=== PATIENT | male | born 1955 | race Caucasian/White ===

== ENCOUNTER 2017-12-09 18:08 | Emergency (ER) | payer OTHER, SELFPAY ==
[2017-12-09 18:12] VITALS: BP 194/102; PULSE 72; RESP 16; TEMP 37.1; O2SAT 98
--- NOTE | 2017-12-09 18:27 | ED.UPPEXIN ---
HPI - Extremity Injury (Upper) <MARGARET Portillo - Last Filed: 12/09/17 22:20> General Chief Complaint: Extremity Injury, Upper Stated Complaint: RT HAND INJURY-SAW Time Seen by Provider: 12/09/17 18:27 Source: patient Mode of arrival: ambulatory Limitations: no limitations History of Present Illness HPI narrative: A 62-year-old with history of type 2 diabetes and is nonsmoker here for complaint of a laceration to his right palm area. He states that he was using a skill saw earlier today when he slipped while holding the saw causing the saw to cut the distal right palm area along the radial aspect to area of proximal index finger. He denies any other injuries. He states he has got good sensation to the finger. And has good movement. He does not know his last tetanus. No other concerns or complaints at this time. Related Data Previous Rx's Medication Instructions Recorded atorvastatin [Lipitor] 80 mg PO HS #90 tab 05/17/17 metformin [Glucophage] 0 PO BID #150 tab 07/06/17 cephalexin 500 mg PO BID #14 tab 12/09/17 hydrocodone-acetaminophen 1 tab PO Q4-6H PRN #10 tab 12/09/17 Allergies Allergy/AdvReac Type Severity Reaction Status Date / Time celery AdvReac Verified 12/09/17 18:11 soybean AdvReac Verified 12/09/17 18:11 Review of Systems <MARGARET Portillo - Last Filed: 12/09/17 22:20> Constitutional Denies chills, Denies fever(s), Denies lethargy and Denies weakness Eyes Denies change in vision, Denies eye discharge, Denies irritation and Denies loss of vision ENT Ears, Nose, Mouth, and Throat: Denies change in voice, Denies neck pain and Denies sore throat Cardiovascular Denies chest pain, Denies irregular heart rhythm, Denies lightheadedness, Denies palpitations, Denies dyspnea, Denies dyspnea on exertion and Denies orthopnea Respiratory Denies cough, Denies dyspnea, Denies dyspnea on exertion and Denies wheezing Genitourinary Denies hematuria, Denies flank pain, Denies urinary incontinence and Denies urinary urgency Musculoskeletal Denies neck pain Comments: Injury to right hand with saw Integumentary/Breasts Denies pruritus, Denies erythema, Denies rash and Denies wounds Neurologic Denies confusion, Denies loss of vision and Denies weakness Psychiatric Denies anxiety, Denies confusion, Denies depression, Denies homicidal ideation and Denies suicidal ideation Endocrine Denies palpitations Hematologic/Lymphatic Denies easy bruising Allergic/Immunologic Denies wheezing Exam <MARGARET Portillo - Last Filed: 12/09/17 22:20> Initial Vital Signs Initial Vital Signs: Vital Signs Temperature 98.7 F 12/09/17 18:12 Pulse Rate 72 12/09/17 18:12 Respiratory Rate 16 12/09/17 18:12 Blood Pressure 194/102 H 12/09/17 18:12 Pulse Oximetry 98 12/09/17 18:12 Const General: cooperative and well developed Nutritional Appearance: well nourished Orientation: alert, awake, oriented x3 and not confused HENMT Mouth: oral mucosae normal and moist mucous membranes Eyes Conjunctivae: conjunctivae normal Sclera: sclerae normal Pupils: PERRL EOM: EOM intact bilaterally Other: 5 cm jagged laceration to the palmar aspect of the right hand just proximal to the right index finger. Distal sensation is intact. Full range of motion distally. Distal cap refill less than 2 sec. Resp Effort & Inspection: normal respiratory effort, able to speak in complete sentences, no respiratory distress and no use of accessory muscles Auscultation: clear to auscultation bilaterally, no rales, no rhonchi and no wheezes Cardio Rate: regular rate Rhythm: regular rhythm Heart Sounds: no click, no gallops, no murmurs and no rubs Pulses: normal peripheral pulses Skin General: no rashes or lesions noted, No jaundice and No petechiae Neuro General: alert, oriented x3, gait normal and no focal motor deficits Speech: speech normal <Melissa Tian DO - Last Filed: 12/10/17 04:20> Initial Vital Signs Initial Vital Signs: Vital Signs Temperature 98.7 F 12/09/17 18:12 Pulse Rate 72 12/09/17 18:12 Respiratory Rate 16 12/09/17 18:12 Blood Pressure 194/102 H 12/09/17 18:12 Pulse Oximetry 98 12/09/17 18:12 Procedures <MARGARET Portillo - Last Filed: 12/09/17 22:20> Laceration Repair Laceration 1: Site: hand Side (If applicable): left Size (cm): 5 Description: irregular Depth: involves muscle layer Local Anesthetic: lidocaine 1% Amount of anesthesia used (mL): 6 Pre-repair: wound explored and irrigated extensively Skin layer closed with: nylon Size (cm): 4-0 Number of sutures: 12 Technique: simple, interrupted Course <MARGARET Portillo - Last Filed: 12/09/17 22:20> Orders Ordered: Discontinued Medications Cephalexin HCl (Keflex) 500 mg PO NOW ONE Stop: 12/09/17 21:13 Last Admin: 12/09/17 21:54 Dose: 500 mg Diphtheria/Tetanus/Acell Pertussis (Adacel) 0.5 ml IM .ONCE ONE Stop: 12/09/17 18:24 Last Admin: 12/09/17 18:29 Dose: 0.5 ml Vital Signs - 8 hr 12/09/17 21:40 Pulse Rate 66 Blood Pressure [Right Arm] 194/107 H Pulse Oximetry 94 <Melissa Tian DO - Last Filed: 12/10/17 04:20> Orders Ordered: Discontinued Medications Cephalexin HCl (Keflex) 500 mg PO NOW ONE Stop: 12/09/17 21:13 Last Admin: 12/09/17 21:54 Dose: 500 mg Diphtheria/Tetanus/Acell Pertussis (Adacel) 0.5 ml IM .ONCE ONE Stop: 12/09/17 18:24 Last Admin: 12/09/17 18:29 Dose: 0.5 ml Vital Signs - 8 hr 12/09/17 21:40 Pulse Rate 66 Blood Pressure [Right Arm] 194/107 H Pulse Oximetry 94 MDM - Extremity Injury (Upper) <MARGARET Portillo - Last Filed: 12/09/17 22:20> Imaging Data R hand: Radiologist's impression: [address] [address] XRay Report Signed Patient: Haroldo Lozano WMR#: [id number] : 3Acct:[id number] Age/Sex: 62 / MDate of Service: 12/09/17 Loc: ED Accession Number: [id number] Procedure: XR hand RT min 3V Ordering Provider: Jaspal Burnett PROCEDURE: XR HAND RT MIN 3V INDICATIONS: Laceration R index finger into palm sp saw injury TECHNIQUE: 3 views of the hand(s) acquired. COMPARISON: None. FINDINGS: Mildly displaced intra-articular fracture of proximal phalanx of the right index finger. There is mild articular surface incongruity at the PIP joint with approximately 1 mm of step-off and diastasis. Associated soft tissue swelling and laceration IMPRESSION: Intra-articular fracture involving the proximal phalanx of the right index finger Dictated by: Nathaniel Kraft M.D. on 12/09/2017 at 20:47 Approved by: Nathaniel Kraft M.D. on 12/09/2017 at 20:49 [facility] Narrative Medical decision making narrative: X-ray of the right hand shows a intra-articular fracture involving the proximal phalanx of the right index finger. Discussed case with Dr. Pugh Orthopedics who recommended closure and placed on antibiotics with close follow-up with Orthopedics. Patient call Orthopedics office tomorrow morning to schedule follow-up appointment tomorrow. He is placed on Keflex. Laceration to the right hand was closed with 12 4-0 nylon sutures. Area dressed with bacitracin dressing and hand splinted to limit the amount of show placed on the laceration. [id number] Tylenol or Motrin as needed for any discomfort. Small amount of [employer] is prescribed for breakthrough pain. For any worsening symptoms return to the emergency room. Discharge Plan Departure Patient Disposition: Home Clinical Impression: Open fracture of right hand Discharge Date/Time: 12/09/17 22:06 Interventions: ED Discharge Assessment Last Done: 12/09/17 22:06 Instructions: DI for Open Fracture Activity Restrictions/Additional Instructions: X-ray of the right hand shows a of a fracture to your right index finger. This is classified as an open fracture and is at risk for infection. Therefore you were placed on an antibiotic called Keflex use as directed. He will need to follow up with Orthopedics tomorrow call Orthopedics office at number provided to schedule follow-up appointment. Use [id number] Tylenol or Motrin as needed for any discomfort. Small amount of [employer] is prescribed for any breakthrough pain also use as directed no driving while on the [employer] [place]. Year placed in a splint to reduce the amount of pressure on the laceration where as directed for any worsening symptoms return to the emergency room. Prescriptions: New hydrocodone-acetaminophen 5-325 mg tablet 1 tab PO Q4-6H PRN (Reason: pain) Qty: 10 RF: 0 cephalexin 500 mg tablet 500 mg PO BID Qty: 14 RF: 0 No Action atorvastatin [Lipitor] 80 MG tablet 80 mg PO HS Qty: 90 RF: 1 metformin [Glucophage] 500 mg tablet PO BID Qty: 150 RF: 0 Referrals: Ba Dahl MD [Primary Care Provider] - Dino Pugh MD [Physician] - Stand Alone Forms: Work/School Restrictions <Melissa Tian DO - Last Filed: 12/10/17 04:20> Cosign ED Attending Carineature Attestation: I was immediately available in the department for consultation. Documentation has been reviewed. I agree with assessment and plan.
[2017-12-09] MEDS: TET,DIPH,PERTUSS(ACELL),VAC/PF 0.5 ML SYRINGE IM (18:29)
--- NOTE | 2017-12-09 19:12 | DI.RAD.S_ITS ---
PROCEDURE: XR HAND RT MIN 3V INDICATIONS: Laceration R index finger into palm sp saw injury TECHNIQUE: 3 views of the hand(s) acquired. COMPARISON: None. FINDINGS: Mildly displaced intra-articular fracture of proximal phalanx of the right index finger. There is mild articular surface incongruity at the PIP joint with approximately 1 mm of step-off and diastasis. Associated soft tissue swelling and laceration IMPRESSION: Intra-articular fracture involving the proximal phalanx of the right index finger Dictated by: Nathaniel Kraft M.D. on 12/09/2017 at 20:47 Approved by: Nathaniel Kraft M.D. on 12/09/2017 at 20:49
--- NOTE | 2017-12-09 21:18 | ED_ITS ---
HPI - Extremity Injury (Upper) <MARGARET Portillo - Last Filed: 12/09/17 22:20> General Chief Complaint: Extremity Injury, Upper Stated Complaint: RT HAND INJURY-SAW Time Seen by Provider: 12/09/17 18:27 Source: patient Mode of arrival: ambulatory Limitations: no limitations History of Present Illness HPI narrative: A 62-year-old with history of type 2 diabetes and is nonsmoker here for complaint of a laceration to his right palm area. He states that he was using a skill saw earlier today when he slipped while holding the saw causing the saw to cut the distal right palm area along the radial aspect to area of proximal index finger. He denies any other injuries. He states he has got good sensation to the finger. And has good movement. He does not know his last tetanus. No other concerns or complaints at this time. Related Data Previous Rx's Medication Instructions Recorded atorvastatin [Lipitor] 80 mg PO HS #90 tab 05/17/17 metformin [Glucophage] 0 PO BID #150 tab 07/06/17 cephalexin 500 mg PO BID #14 tab 12/09/17 hydrocodone-acetaminophen 1 tab PO Q4-6H PRN #10 tab 12/09/17 Allergies Allergy/AdvReac Type Severity Reaction Status Date / Time celery AdvReac Verified 12/09/17 18:11 soybean AdvReac Verified 12/09/17 18:11 Review of Systems <MARGARET Portillo - Last Filed: 12/09/17 22:20> Constitutional Denies chills, Denies fever(s), Denies lethargy and Denies weakness Eyes Denies change in vision, Denies eye discharge, Denies irritation and Denies loss of vision ENT Ears, Nose, Mouth, and Throat: Denies change in voice, Denies neck pain and Denies sore throat Cardiovascular Denies chest pain, Denies irregular heart rhythm, Denies lightheadedness, Denies palpitations, Denies dyspnea, Denies dyspnea on exertion and Denies orthopnea Respiratory Denies cough, Denies dyspnea, Denies dyspnea on exertion and Denies wheezing Genitourinary Denies hematuria, Denies flank pain, Denies urinary incontinence and Denies urinary urgency Musculoskeletal Denies neck pain Comments: Injury to right hand with saw Integumentary/Breasts Denies pruritus, Denies erythema, Denies rash and Denies wounds Neurologic Denies confusion, Denies loss of vision and Denies weakness Psychiatric Denies anxiety, Denies confusion, Denies depression, Denies homicidal ideation and Denies suicidal ideation Endocrine Denies palpitations Hematologic/Lymphatic Denies easy bruising Allergic/Immunologic Denies wheezing Exam <MARGARET Portillo - Last Filed: 12/09/17 22:20> Initial Vital Signs Initial Vital Signs: Vital Signs Temperature 98.7 F 12/09/17 18:12 Pulse Rate 72 12/09/17 18:12 Respiratory Rate 16 12/09/17 18:12 Blood Pressure 194/102 H 12/09/17 18:12 Pulse Oximetry 98 12/09/17 18:12 Const General: cooperative and well developed Nutritional Appearance: well nourished Orientation: alert, awake, oriented x3 and not confused HENMT Mouth: oral mucosae normal and moist mucous membranes Eyes Conjunctivae: conjunctivae normal Sclera: sclerae normal Pupils: PERRL EOM: EOM intact bilaterally Other: 5 cm jagged laceration to the palmar aspect of the right hand just proximal to the right index finger. Distal sensation is intact. Full range of motion distally. Distal cap refill less than 2 sec. Resp Effort & Inspection: normal respiratory effort, able to speak in complete sentences, no respiratory distress and no use of accessory muscles Auscultation: clear to auscultation bilaterally, no rales, no rhonchi and no wheezes Cardio Rate: regular rate Rhythm: regular rhythm Heart Sounds: no click, no gallops, no murmurs and no rubs Pulses: normal peripheral pulses Skin General: no rashes or lesions noted, No jaundice and No petechiae Neuro General: alert, oriented x3, gait normal and no focal motor deficits Speech: speech normal <Melissa Tian DO - Last Filed: 12/10/17 04:20> Initial Vital Signs Initial Vital Signs: Vital Signs Temperature 98.7 F 12/09/17 18:12 Pulse Rate 72 12/09/17 18:12 Respiratory Rate 16 12/09/17 18:12 Blood Pressure 194/102 H 12/09/17 18:12 Pulse Oximetry 98 12/09/17 18:12 Procedures <MARGARET Portillo - Last Filed: 12/09/17 22:20> Laceration Repair Laceration 1: Site: hand Side (If applicable): left Size (cm): 5 Description: irregular Depth: involves muscle layer Local Anesthetic: lidocaine 1% Amount of anesthesia used (mL): 6 Pre-repair: wound explored and irrigated extensively Skin layer closed with: nylon Size (cm): 4-0 Number of sutures: 12 Technique: simple, interrupted Course <MARGARET Portillo - Last Filed: 12/09/17 22:20> Orders Ordered: Discontinued Medications Cephalexin HCl (Keflex) 500 mg PO NOW ONE Stop: 12/09/17 21:13 Last Admin: 12/09/17 21:54 Dose: 500 mg Diphtheria/Tetanus/Acell Pertussis (Adacel) 0.5 ml IM .ONCE ONE Stop: 12/09/17 18:24 Last Admin: 12/09/17 18:29 Dose: 0.5 ml Vital Signs - 8 hr 12/09/17 21:40 Pulse Rate 66 Blood Pressure [Right Arm] 194/107 H Pulse Oximetry 94 <Melissa Tian DO - Last Filed: 12/10/17 04:20> Orders Ordered: Discontinued Medications Cephalexin HCl (Keflex) 500 mg PO NOW ONE Stop: 12/09/17 21:13 Last Admin: 12/09/17 21:54 Dose: 500 mg Diphtheria/Tetanus/Acell Pertussis (Adacel) 0.5 ml IM .ONCE ONE Stop: 12/09/17 18:24 Last Admin: 12/09/17 18:29 Dose: 0.5 ml Vital Signs - 8 hr 12/09/17 21:40 Pulse Rate 66 Blood Pressure [Right Arm] 194/107 H Pulse Oximetry 94 MDM - Extremity Injury (Upper) <MARGARET Portillo - Last Filed: 12/09/17 22:20> Imaging Data R hand: Radiologist's impression: [address] [address] XRay Report Signed Patient: Haroldo Lozano WMR#: [id number] : 3Acct:[id number] Age/Sex: 62 / MDate of Service: 12/09/17 Loc: ED Accession Number: [id number] Procedure: XR hand RT min 3V Ordering Provider: Jaspal Burnett PROCEDURE: XR HAND RT MIN 3V INDICATIONS: Laceration R index finger into palm sp saw injury TECHNIQUE: 3 views of the hand(s) acquired. COMPARISON: None. FINDINGS: Mildly displaced intra-articular fracture of proximal phalanx of the right index finger. There is mild articular surface incongruity at the PIP joint with approximately 1 mm of step-off and diastasis. Associated soft tissue swelling and laceration IMPRESSION: Intra-articular fracture involving the proximal phalanx of the right index finger Dictated by: Nathaniel Kraft M.D. on 12/09/2017 at 20:47 Approved by: Nathaniel Kraft M.D. on 12/09/2017 at 20:49 [facility] Narrative Medical decision making narrative: X-ray of the right hand shows a intra- articular fracture involving the proximal phalanx of the right index finger. Discussed case with Dr. Pugh Orthopedics who recommended closure and placed on antibiotics with close follow-up with Orthopedics. Patient call Orthopedics office tomorrow morning to schedule follow-up appointment tomorrow. He is placed on Keflex. Laceration to the right hand was closed with 12 4-0 nylon sutures. Area dressed with bacitracin dressing and hand splinted to limit the amount of show placed on the laceration. [id number] Tylenol or Motrin as needed for any discomfort. Small amount of [place] is prescribed for breakthrough pain. For any worsening symptoms return to the emergency room. Discharge Plan Departure Patient Disposition: Home Clinical Impression: Open fracture of right hand Discharge Date/Time: 12/09/17 22:06 Interventions: ED Discharge Assessment Last Done: 12/09/17 22:06 Instructions: DI for Open Fracture Activity Restrictions/Additional Instructions: X-ray of the right hand shows a of a fracture to your right index finger. This is classified as an open fracture and is at risk for infection. Therefore you were placed on an antibiotic called Keflex use as directed. He will need to follow up with Orthopedics tomorrow call Orthopedics office at number provided to schedule follow-up appointment. Use [id number] Tylenol or Motrin as needed for any discomfort. Small amount of [place] is prescribed for any breakthrough pain also use as directed no driving while on the [place]. Year placed in a splint to reduce the amount of pressure on the laceration where as directed for any worsening symptoms return to the emergency room. Prescriptions: New hydrocodone-acetaminophen 5-325 mg tablet 1 tab PO Q4-6H PRN (Reason: pain) Qty: 10 RF: 0 cephalexin 500 mg tablet 500 mg PO BID Qty: 14 RF: 0 No Action atorvastatin [Lipitor] 80 MG tablet 80 mg PO HS Qty: 90 RF: 1 metformin [Glucophage] 500 mg tablet PO BID Qty: 150 RF: 0 Referrals: Ba Dahl MD [Primary Care Provider] - Dino Pugh MD [Physician] - Stand Alone Forms: Work/School Restrictions <Melissa Tian DO - Last Filed: 12/10/17 04:20> Cosign ED Attending Carineature Attestation: I was immediately available in the department for consultation. Documentation has been reviewed. I agree with assessment and plan.
--- NOTE | 2017-12-09 21:37 | PC.NURSE ---
His finger was dressed with telfa,first bacitracin,then ruthann wrap.3 inch volar orthoglass splint to site after to prevent lac from opening.
[2017-12-09 21:40] VITALS: BP 194/107; PULSE 66; O2SAT 94
[2017-12-09] MEDS: cephALEXin 250 MG CAPSULE 500 MG PO (21:54)
--- NOTE | 2017-12-09 22:06 | PC.NURSE ---
Teaching done on b/p.He will follow up with his pcp regarding this.
== END 2017-12-09 22:06 | disposition home or self-care (01) ==
PROVIDERS: Emergency Provider Nurse Practitioner Family; Family Provider Family Medicine; PCP Family Medicine
DX: S62.91XB Unspecified fracture of right hand, initial encounter for open fracture (principal); W27.0XXA Contact with workbench tool, initial encounter
CPT/HCPCS: 12002; 12014; 73130; 90471; 99284; 99285; 90715

== ENCOUNTER → 2017-12-27 07:02 | Outpatient (CLI) | payer OTHER, SELFPAY ==
[2017-12-27 07:30] LABS: Add Manual Diff / Slide Review NO; Eosinophils Percent Auto 2.6 % (2-4); Hematocrit 46.5 % (41-53); Hemoglobin 15.8 g/dL (13.5-17.5); Mean Corpuscular Hemoglobin 29.1 PG (26-34); Mean Corpuscular Volume 85.6 fL (80-100); Monocytes Percent Auto 8.5 % (3-14); Neutrophils Absolute Auto 3400 /uL (3000-5900); Neutrophils Percent Auto 55.9 % (50-75); Platelet Count 322 X10^3/uL (150-400); Red Blood Cell Count 5.43 X10^6/uL (4.5-5.9); Red Cell Distribution Width 13.2 % (11.6-14.8)
[2017-12-27 07:46] LABS: Alanine Aminotransferase 42 IU/L (21-72); Albumin 4.1 g/dL (3.5-5.0); Albumin Globulin Ratio 1.2 (1.0-2.8); Alkaline Phosphatase 75 U/L (38-126); Aspartate Aminotransferase 22 IU/L (17-59); BUN Creatinine Ratio 23.8 (6-22); Bilirubin Total 0.6 mg/dL (0.2-1.3); Blood Urea Nitrogen 19 mg/dL (9-20); Calcium 9.2 mg/dL (8.4-10.2); Carbon Dioxide 25 mmol/L (22-32); Chloride 103 mmol/L (98-107); Cholesterol 287 mg/dL (140-199); Estimated Glomerular Filt Rate > 60.0 mL/min (>60); Globulin 3.3 g/dL (1.7-4.1); Glucose 319 mg/dL (80-110); HDL Cholesterol 45 mg/dL (40-60); HEMOLYSIS < 15 (0-50); LDL Cholesterol Calculated 204 mg/dL (<100); Potassium 4.1 mmol/L (3.4-5.1); Sodium 141 mmol/L (137-145); Total Protein 7.4 g/dL (6.3-8.2); Triglycerides 191 mg/dL (35-150)
[2017-12-27 08:15] LABS: Prostate Specific Antigen 0.455 ng/mL (0.10-4.00)
[2017-12-27 08:27] LABS: Thyroid Stimulating Hormone 2.86 uIU/mL (0.47-4.68)
[2017-12-27 09:19] LABS: Creatinine Urine Random 96.6 mg/dL
[2017-12-27 09:24] LABS: Microalbumi Creatinin Ratio Ur 20.7 ug/mg CR (<30)
== END ==
PROVIDERS: PCP Family Medicine; Visit Provider Family Medicine
DX: E11.9 Type 2 diabetes mellitus without complications (principal); E78.5 Hyperlipidemia, unspecified; Z12.5 Encounter for screening for malignant neoplasm of prostate
CPT/HCPCS: 80053; 80061; 82043; 82570; 84153; 84443; 85025